=== PATIENT | male | born 1995 | race African-American/Black ===

== ENCOUNTER 2018-02-05 19:55 | Emergency (ER) | payer SELFPAY ==
--- NOTE | 2018-02-05 20:03 | ER Report ---
History and Physical Time Seen By MD: 20:03 Hx. of Stated Complaint: pt states he is having a crohns flare up. HPI/ROS CHIEF COMPLAINT: Crohn's disease flareup HISTORY OF PRESENT ILLNESS: This is a 22-year-old male. He is traveling through heading back to his home in [place]. He has a long-standing history of Crohn's disease. The last few months with severe flareup with diarrhea including blood in the diarrhea. He is having increasing crampy pain as well. He is not really interested in pain medicine but hoping for something to help with the flareup. He has been on various medicines such as Pentasa and other immunosuppressants for Crohn's as well as prednisone in the past. He denies any other problems at this time. No fevers or chills. No trouble with urination. No shortness of breath or chest pain. Allergies: Coded Allergies: No Known Drug Allergies (Unverified , 02/05/18) Home Meds Active Scripts Prednisone (PREDNISONE) 20 Mg Tablet, 20 MG PO DIRECTED, #44 TAB 0 Refills Take 3 tablets once a day for 4 days, then take 2 1/2 tablets once a day for 4 days, then take 2 tablets once a day for 4 days, then taek 1 1/2 tablets once a day for 4 days, then take 1 tablet once a day for 4 days, then take 1/2 tablet once a day for 4 days, then stop. Prov:RICCI HUTCHINS MD 02/05/18 Reviewed Nurses Notes: Yes Constitutional Vital Sign - Last 24 Hours 02/05/18 02/05/18 02/05/18 02/05/18 19:55 19:58 19:59 20:25 Temp 98.3 Pulse ??? 87 83 Resp 16 B/P (MAP) 119/88 119/88 (98) Pulse Ox 93 94 O2 Delivery Room Air 02/05/18 02/05/18 02/05/18 20:30 20:55 21:00 Pulse 82 B/P (MAP) 116/95 (102) 105/79 (88) Pulse Ox 93 Physical Exam General Appearance: The patient is alert. No acute distress. Non-toxic in appearance. Eyes: Pupils are equal, round. No pallor, injection or icterus. ENT: Mucous membranes are moist. Normal oral mucosa. Posterior oropharynx is normal. Neck: Supple and non tender. Respiratory: Lungs are clear to auscultation. Cardiovascular: Regular rate and rhythm. No murmurs, gallops or rubs. Normal capillary refill. Gastrointestinal: Abdomen is soft, diffuse discomfort with palpation, but no focal tenderness. Nondistended. Hyperactive bowel sounds. No costovertebral angle tenderness with percussion. Neurological: Alert and oriented x3. Skin: Warm and dry. DIFFERENTIAL DIAGNOSIS: After history and physical exam, differential diagnosis was considered for Crohn's disease flareup Medical Decision Making Data Points Result Diagram: 02/05/18200202/05/182002 Laboratory Hematology Test 02/05/18 20:03 Red Blood Count 5.55 M/uL (4.00-5.60) Mean Corpuscular Volume 88.8 fL (80.0-96.0) Mean Corpuscular Hemoglobin 30.5 pg (26.0-33.0) Mean Corpuscular Hemoglobin Concent 34.3 g/dL (32.0-36.0) Red Cell Distribution Width 13.8 % (11.5-14.5) Mean Platelet Volume 6.8 fL (7.2-11.1) Neutrophils (%) (Auto) 47.9 % (39.4-72.5) Lymphocytes (%) (Auto) 39.2 % (17.6-49.6) Monocytes (%) (Auto) 6.4 % (4.1-12.4) Eosinophils (%) (Auto) 5.9 % (0.4-6.7) Basophils (%) (Auto) 0.6 % (0.3-1.4) Nucleated RBC Relative Count (auto) 0.1 /100WBC Neutrophils # (Auto) 4.4 K/uL (2.0-7.4) Lymphocytes # (Auto) 3.6 K/uL (1.3-3.6) Monocytes # (Auto) 0.6 K/uL (0.3-1.0) Eosinophils # (Auto) 0.5 K/uL (0.0-0.5) Basophils # (Auto) 0.1 K/uL (0.0-0.1) Nucleated RBC Absolute Count (auto) 0.01 K/uL Erythrocyte Sedimentation Rate 3 mm/HOUR (0-15) Prothrombin Time 13.6 seconds (12.0-14.4) Prothromb Time International Ratio 1.04 Activated Partial Thromboplast Time 35 seconds (23-35) Sodium Level 139 mmol/L (137-145) Potassium Level 4.1 mmol/L (3.5-5.0) Chloride Level 100 mmol/L (98-107) Carbon Dioxide Level 29 mmol/L (22-30) Blood Urea Nitrogen 7 mg/dl (9-21) Creatinine 1.10 mg/dl (0.66-1.25) Glomerular Filtration Rate Calc > 60.0 Random Glucose 88 mg/dl (75-110) Calcium Level 9.5 mg/dl (8.4-10.2) Total Bilirubin 0.7 mg/dl (0.2-1.3) Aspartate Amino Transf (AST/SGOT) 23 U/L (0-35) Alanine Aminotransferase (ALT/SGPT) 27 U/L (0-56) Alkaline Phosphatase 53 U/L (0-126) Total Protein 8.1 g/dl (6.3-8.2) Albumin 4.4 g/dl (3.5-5.0) Chemistry Test 02/05/18 20:03 White Blood Count 9.1 k/uL (4.5-11.0) Red Blood Count 5.55 M/uL (4.00-5.60) Hemoglobin 16.9 g/dL (14.0-18.0) Hematocrit 49.3 % (42.0-52.0) Mean Corpuscular Volume 88.8 fL (80.0-96.0) Mean Corpuscular Hemoglobin 30.5 pg (26.0-33.0) Mean Corpuscular Hemoglobin Concent 34.3 g/dL (32.0-36.0) Red Cell Distribution Width 13.8 % (11.5-14.5) Platelet Count 237 K/uL (150-450) Mean Platelet Volume 6.8 fL (7.2-11.1) Neutrophils (%) (Auto) 47.9 % (39.4-72.5) Lymphocytes (%) (Auto) 39.2 % (17.6-49.6) Monocytes (%) (Auto) 6.4 % (4.1-12.4) Eosinophils (%) (Auto) 5.9 % (0.4-6.7) Basophils (%) (Auto) 0.6 % (0.3-1.4) Nucleated RBC Relative Count (auto) 0.1 /100WBC Neutrophils # (Auto) 4.4 K/uL (2.0-7.4) Lymphocytes # (Auto) 3.6 K/uL (1.3-3.6) Monocytes # (Auto) 0.6 K/uL (0.3-1.0) Eosinophils # (Auto) 0.5 K/uL (0.0-0.5) Basophils # (Auto) 0.1 K/uL (0.0-0.1) Nucleated RBC Absolute Count (auto) 0.01 K/uL Erythrocyte Sedimentation Rate 3 mm/HOUR (0-15) Prothrombin Time 13.6 seconds (12.0-14.4) Prothromb Time International Ratio 1.04 Activated Partial Thromboplast Time 35 seconds (23-35) Glomerular Filtration Rate Calc > 60.0 Calcium Level 9.5 mg/dl (8.4-10.2) Total Bilirubin 0.7 mg/dl (0.2-1.3) Aspartate Amino Transf (AST/SGOT) 23 U/L (0-35) Alanine Aminotransferase (ALT/SGPT) 27 U/L (0-56) Alkaline Phosphatase 53 U/L (0-126) Total Protein 8.1 g/dl (6.3-8.2) Albumin 4.4 g/dl (3.5-5.0) Coagulation Test 02/05/18 20:03 Prothrombin Time 13.6 seconds Prothromb Time International Ratio 1.04 Activated Partial Thromboplast Time 35 seconds ED Course/Re-evaluation Clinical Indication for ER IV: Hydration, IV Access ED Course He feel a little better with the steroids and fluids. We will start him on Prednisone taper as noted below and he will follow-up once he gets back to [place], sooner if worsening symptoms. Decision to Disposition Date: Feb 05, 2018 Decision to Disposition Time: 21:29 Depart Departure Latest Vital Signs Vital Signs Date Time Temp Pulse Resp B/P (MAP) Pulse Ox O2 Delivery O2 Flow Rate FiO2 02/05/18 21:00 105/79 (88) 02/05/18 20:55 82 93 02/05/18 19:58 98.3 16 Room Air Impression: Primary Impression: Crohn's disease with rectal bleeding Condition: Improved Disposition: HOME OR SELF-CARE New Scripts Prednisone (PREDNISONE) 20 Mg Tablet 20 MG PO DIRECTED, #44 TAB 0 Refills Take 3 tablets once a day for 4 days, then take 2 1/2 tablets once a day for 4 days, then take 2 tablets once a day for 4 days, then taek 1 1/2 tablets once a day for 4 days, then take 1 tablet once a day for 4 days, then take 1/2 tablet once a day for 4 days, then stop. Prov: RICCI HUTCHINS MD 02/05/18 Patient Instructions: Crohn Disease (ED) Additional Instructions: Prednisone 20mg tablets: Take 3 tablets once a day for 4 days, then take 2 1/2 tablets once a day for 4 days, then take 2 tablets once a day for 4 days, then taek 1 1/2 tablets once a day for 4 days, then take 1 tablet once a day for 4 days, then take 1/2 tablet once a day for 4 days, then stop. Follow-up with primary care upon return to [place]. Problem Qualifiers Primary Impression: Crohn's disease with rectal bleeding Gastrointestinal tract location: unspecified location Qualified Codes: K50.911 - Crohn's disease, unspecified, with rectal bleeding RICCI HUTCHINS MD Feb 05, 2018 20:03
[2018-02-05] MEDS ORDERED: methylPREDNIS SUCC 125 MG/2ML IVP ONE (20:15)
[2018-02-05] MEDS ORDERED: NS(*) 0.9% 1000 ML BAG 1,000 ML IV ONE (20:15)
[2018-02-05 20:27] LABS: INR 1.04; PLATELET COUNT, AUTOMATED 237 K/uL (150-450)
[2018-02-05 21:00] VITALS: BP 105/79
[2018-02-05] MEDS ORDERED: predniSONE 20 MG TAB PO ONE (21:30)
[2018-02-05] MEDS ORDERED: PRED20TA6 PO (21:32)
== END 2018-02-05 21:50 | disposition home or self-care (01) ==
LOC: ER 20:27
DX: K50.911 Crohn's disease, unspecified, with rectal bleeding (principal)
CPT/HCPCS: 85025; 85610; 85651; 85730; J2930; J7030; J7512; 82040; 82247; 82310; 82374; 82435; 82565; 82947; 84075; 84132; 84155; 84295; 84450; 84460; 84520; 96361; 96374; 99284